=== PATIENT | female | born 1940 | race Two or more races ===

== ENCOUNTER 2022-05-11 07:08 | Inpatient (IN) | payer OTHER ==
[~2022-05-11] VITALS: Ht 170.2 cm; Wt 58.5 kg
[~2022-05-11 07:08] MED LIST: AGG25C PO; ALEN5TAB8 PO; FENO160T4 PO; HYDR25TA4 PO; LISI20TA28 PO; MELA1CAP SL; PEPCID PO; TEMA7.5C PO; [UNRECOGNIZED DRUG - CODE] SC
[2022-05-11 07:50] LABS: Basophils # (auto) 0 10 ^3/uL (0-0.2); Basophils % (auto) 0.3 % (0.0-2.0); Eosinophils # (auto) 0 10 ^3/uL (0-0.8); Hematocrit 50.1 % (36.0-46.0); Hemoglobin 15.6 g/dL (12.2-16.2); Lymphocytes # (auto) 0.6 10 ^3/uL (0.4-5.4); Lymphocytes % (auto) 4.8 % (10.0-50.0); Mean Corpuscular Hemoglobin 28.1 pg (28.0-32.0); Mean Corpuscular Hgb Conc. 31.1 g/dL (32.0-36.0); Mean Corpuscular Volume 90.3 fL (80.0-100.0); Monocytes # (auto) 0.2 10 ^3/uL (0-1.3); Monocytes % (auto) 1.4 % (0.0-12.0); Neutrophils # (auto) 11.6 10 ^3/uL (1.6-8.6); Neutrophils % (auto) 93.5 % (37.0-80.0); Red Blood Cells 5.55 10^6/uL (4.0-5.20); Red Cell Distribution Width 12.9 % (11.8-14.3); White Blood Cell 12.4 10^3/uL (4.4-10.8)
[2022-05-11] MEDS ORDERED: ACETAMINOPHEN 325 MG RECT SUPP PR ONE (07:57)
[2022-05-11] MEDS ORDERED: VANCOMYCIN PER PHARMACY 1,000 MG IV SCH (08:00)
[2022-05-11] MEDS ORDERED: SODIUM CHLORIDE 0.9% 1,650 ML IV ONE ×2 (08:00→08:30)
[2022-05-11] MEDS ORDERED: ACETAMINOPHEN 650 MG RECT SUPP PR ONE (08:00)
[2022-05-11 08:05] LABS: Albumin 3.3 g/dL (3.4-5.0); Anion Gap 14 (5-15); Blood Alcohol < 3.0 mg/dL (0-5); Blood Urea Nitrogen 22 mg/dL (7-18); Calcium 9.4 mg/dL (8.5-10.1); Carbon Dioxide 23 mmol/L (21-32); Chloride 97 mmol/L (98-107); Potassium 4.2 mmol/L (3.5-5.1); Sodium 134 mmol/L (136-145)
[2022-05-11 08:08] LABS: Alanine Aminotransferase 31 U/L (13-56); Aspartate Aminotransferase 21 U/L (15-37); GFR African American 49 mL/min; GFR Non-African American 41 mL/min
[2022-05-11 08:14] LABS: Alkaline Phosphatase 161 U/L (45-117); BUN/Creatinine Ratio 16.5; Bilirubin, Total 1.4 mg/dL (0.2-1.0); Glucose 592 mg/dL (74-106)
[2022-05-11 08:27] LABS: Urine Bacteria NONE SEEN /hpf (None Seen); Urine Blood 1+ /uL (Negative); Urine Specific Gravity 1.019 (1.001-1.035); Urine WBC 4 /hpf (0 - 5)
[2022-05-11] MEDS ORDERED: ASPirin 325 MG TAB PO ONE (08:30)
[2022-05-11] MEDS ORDERED: IOHEXOL 300 MG/ML 100ML BOTTLE IJ ONE (08:30)
[2022-05-11] MEDS ORDERED: VANCOMYCIN 1GM/250ML 250 ML IV ONE ×2 (08:45→11:00)
[2022-05-11] MEDS: PIPERACILLIN-TAZOB 2.25GM 50 ML IV SCH ×2 (09:31→15:27)
[2022-05-11 10:00] LABS: Lactic Acid w/Reflex 3.3 mmol/L (0.4-2.0)
[2022-05-11] MEDS ORDERED: InsuLIN REG 1unit/0.01ml Soln (100units/ml) IV ONE (10:45)
[2022-05-11] MEDS ORDERED: SODIUM CHLORIDE 0.9% 1,000 ML IV ONE (10:45)
[2022-05-11] MEDS ORDERED: ONDANSETRON HCL 4 MG/2 ML VIAL IV ONE (11:30)
[2022-05-11] MEDS ORDERED: NITROGLYCERIN 0.4 MG SL TAB SL PRN (11:45)
[2022-05-11] MEDS ORDERED: MORPHINE SULFATE INJ 2 MG/ml SYRG IV PRN (11:45)
[2022-05-11] MEDS ORDERED: ENOXAPARIN SOD 60 MG/0.6 ML SYRINGE SC ONE (12:15)
[2022-05-11] MEDS ORDERED: NITROGLYCERIN 0.2MG/HR TOPICAL PATCH TD ONE (12:15)
[2022-05-11] MEDS ORDERED: DEXTROSE (50%) 50ML SYRG IV PRN (12:15)
[2022-05-11] MEDS ORDERED: INSULIN LANTUS (GLARGINE) 1 /0.01ml (100units/ml) SC ONE (12:15)
[2022-05-11] MEDS ORDERED: ACETAMINOPHEN 650 MG RECT SUPP PR PRN (13:45)
[2022-05-11 13:48] LABS: Alcohol, Urine < 3.0 mg/dL (0-10); Amphetamine Screen, Urine NEGATIVE (NEGATIVE); Barbiturate Scree,Urine NEGATIVE (NEGATIVE); Benzodiazephine Screen, Urine NEGATIVE (NEGATIVE); Cannabinoid Screen, Urine NEGATIVE (NEGATIVE); Cocaine Screen, Urine NEGATIVE (NEGATIVE); Opiate Scree,Urine NEGATIVE (NEGATIVE); Phencyclidine Screen, Urine NEGATIVE (NEGATIVE)
[2022-05-11] MEDS: SODIUM CHLORIDE 0.9% 1,000 ML IV SCH (13:57)
[2022-05-11 18:33] LABS: Calcium 8.7 mg/dL (8.5-10.1); Potassium 3.9 mmol/L (3.5-5.1)
[2022-05-11] MEDS: InsuLIN REG 1unit/0.01ml Soln (100units/ml) SC SCH (18:33)
[2022-05-11] MEDS: ACCU-CHEK COMFORT CURVE STRIP VI SCH (18:34)
[2022-05-11 18:42] LABS: BUN/Creatinine Ratio 14.7
[2022-05-11] MEDS ORDERED: HALOPERIDOL LACTATE 5 MG/ML INJ VIAL IM PRN (20:45)
[2022-05-11] MEDS ORDERED: LORazepam 2MG/ML-1ML VIAL IV PRN (20:45)
[2022-05-11] MEDS ORDERED: ACETAMINOPHEN 120 MG RECT SUPP PR PRN (21:00)
[2022-05-11 21:30] LABS: Cholesterol 82 mg/dL (< 200)
[2022-05-11 21:32] LABS: HDL Cholesterol 42 mg/dL (40-59); LDL Cholesterol 34 mg/dL (< 100); Triglycerides 97 mg/dL (< 150)
[2022-05-11] MEDS ORDERED: ATORVASTATIN 20 MG TAB PO SCH (22:00)
[2022-05-11] MEDS: INSULIN LANTUS (GLARGINE) 1 /0.01ml (100units/ml) SC SCH (22:40)
[2022-05-12] MEDS: ACCU-CHEK COMFORT CURVE STRIP VI SCH ×5 (00:17→23:41)
[2022-05-12] MEDS: InsuLIN REG 1unit/0.01ml Soln (100units/ml) SC SCH ×5 (00:29→23:40)
[2022-05-12] MEDS: SODIUM CHLORIDE 0.9% 1,000 ML IV SCH ×2 (04:47→21:20)
[2022-05-12 05:35] LABS: Folate (Folic Acid) 6.52 ng/mL (5.38-24)
[2022-05-12 06:32] LABS: Basophils # (auto) 0.1 10 ^3/uL (0-0.2); Basophils % (auto) 0.5 % (0.0-2.0); Eosinophils # (auto) 0 10 ^3/uL (0-0.8); Eosinophils % (auto) 0.1 % (0.0-7.0); Hematocrit 40.4 % (36.0-46.0); Lymphocytes # (auto) 1.6 10 ^3/uL (0.4-5.4); Lymphocytes % (auto) 13.4 % (10.0-50.0); Mean Corpuscular Hemoglobin 28.3 pg (28.0-32.0); Mean Corpuscular Hgb Conc. 32.2 g/dL (32.0-36.0); Mean Corpuscular Volume 87.7 fL (80.0-100.0); Monocytes # (auto) 1.5 10 ^3/uL (0-1.3); Monocytes % (auto) 12.3 % (0.0-12.0); Neutrophils # (auto) 8.7 10 ^3/uL (1.6-8.6); Neutrophils % (auto) 73.7 % (37.0-80.0); Red Blood Cells 4.61 10^6/uL (4.0-5.20); Red Cell Distribution Width 12.4 % (11.8-14.3); White Blood Cell 11.8 10^3/uL (4.4-10.8)
[2022-05-12 06:44] LABS: Albumin 2.3 g/dL (3.4-5.0); Calcium 8.5 mg/dL (8.5-10.1)
[2022-05-12 06:48] LABS: Potassium 2.9 mmol/L (3.5-5.1)
[2022-05-12 06:49] LABS: BUN/Creatinine Ratio 17.9; Bilirubin, Total 1.3 mg/dL (0.2-1.0); Total Protein 6.2 g/dL (6.4-8.2)
[2022-05-12] MEDS: POTASSIUM CHL 20MEQ/100ML 100 ML IV SCH ×3 (09:39→14:50)
[2022-05-12] MEDS: cefTRIAXone 1GM/50ML D5W 50 ML IV SCH (09:46)
[2022-05-12] MEDS ORDERED: ENOXAPARIN SOD 30 MG/0.3 ML SYRINGE SC SCH (10:00)
[2022-05-12] MEDS: ASPirin 81 mg TAB PO SCH (10:00)
[2022-05-12] MEDS ORDERED: AZITHROMYCIN 500MG/ 250ML 250 ML IV SCH (10:00)
[2022-05-12] MEDS ORDERED: VANCOMYCIN 750mg/250ml 250 ML IV ONE (12:00)
[2022-05-12] MEDS: ENOXAPARIN SOD 60 MG/0.6 ML SYRINGE SC SCH (13:19)
[2022-05-12 15:10] LABS: Calcium 8.2 mg/dL (8.5-10.1); Magnesium 1.8 mg/dL (1.6-2.6); Potassium 4.4 mmol/L (3.5-5.1)
[2022-05-12 15:21] LABS: Free T4 (Free Thyroxine) 1.92 ng/dL (0.89-1.76); T3 Total 0.69 ng/mL (0.60-1.81)
[2022-05-12 15:25] LABS: Cholesterol 69 mg/dL (< 200); HDL Cholesterol 33 mg/dL (40-59); LDL Cholesterol 31 mg/dL (< 100); Triglycerides 124 mg/dL (< 150)
[2022-05-12 17:00] VITALS: BP 135/68
[2022-05-12] MEDS ORDERED: LINA5TAB PO (19:55)
[2022-05-12] MEDS ORDERED: METO25TA93 PO (19:55)
[2022-05-12] MEDS ORDERED: OLME1TAB PO (19:55)
[2022-05-12] MEDS ORDERED: ROSU1TAB13 PO (19:55)
[2022-05-12] MEDS ORDERED: LEVO125T PO (19:56)
[2022-05-12 22:00] VITALS: BP 153/64
[2022-05-12] MEDS: ATORVASTATIN 20 MG TAB PO SCH (22:00)
[2022-05-12] MEDS: INSULIN LANTUS (GLARGINE) 1 /0.01ml (100units/ml) SC SCH (23:40)
[2022-05-13 05:00] VITALS: BP 152/51
[2022-05-13 05:26] LABS: Basophils # (auto) 0.1 10 ^3/uL (0-0.2); Basophils % (auto) 0.9 % (0.0-2.0); Eosinophils # (auto) 0.1 10 ^3/uL (0-0.8); Eosinophils % (auto) 0.8 % (0.0-7.0); Hematocrit 38.8 % (36.0-46.0); Hemoglobin 12.7 g/dL (12.2-16.2); Lymphocytes # (auto) 1.7 10 ^3/uL (0.4-5.4); Lymphocytes % (auto) 20.8 % (10.0-50.0); Mean Corpuscular Hemoglobin 29.2 pg (28.0-32.0); Mean Corpuscular Hgb Conc. 32.8 g/dL (32.0-36.0); Mean Corpuscular Volume 89.1 fL (80.0-100.0); Monocytes # (auto) 0.7 10 ^3/uL (0-1.3); Monocytes % (auto) 7.8 % (0.0-12.0); Neutrophils # (auto) 5.9 10 ^3/uL (1.6-8.6); Neutrophils % (auto) 69.7 % (37.0-80.0); Nucleated Red Blood Cells % 0.1 %; Red Blood Cells 4.36 10^6/uL (4.0-5.20); Red Cell Distribution Width 12.9 % (11.8-14.3); White Blood Cell 8.4 10^3/uL (4.4-10.8)
[2022-05-13 05:35] LABS: BUN/Creatinine Ratio 26.3; Calcium 8.4 mg/dL (8.5-10.1); Potassium 3.8 mmol/L (3.5-5.1)
[2022-05-13] MEDS: InsuLIN REG 1unit/0.01ml Soln (100units/ml) SC SCH ×3 (05:45→18:00)
[2022-05-13] MEDS: ACCU-CHEK COMFORT CURVE STRIP VI SCH ×4 (05:46→23:58)
[2022-05-13 09:00] VITALS: BP 153/74
[2022-05-13] MEDS: ASPirin 81 mg TAB PO SCH ×2 (09:07→09:19)
[2022-05-13] MEDS: cefTRIAXone 1GM/50ML D5W 50 ML IV SCH (09:07)
[2022-05-13] MEDS: ENOXAPARIN SOD 60 MG/0.6 ML SYRINGE SC SCH (09:08)
[2022-05-13 13:00] VITALS: BP 163/88
[2022-05-13] MEDS: SODIUM CHLORIDE 0.9% 1,000 ML IV SCH (14:00)
[2022-05-13 17:00] VITALS: BP 187/76
[2022-05-13 22:00] VITALS: BP 164/88
[2022-05-13] MEDS: ATORVASTATIN 20 MG TAB PO SCH (22:10)
[2022-05-13] MEDS: INSULIN LANTUS (GLARGINE) 1 /0.01ml (100units/ml) SC SCH (22:12)
[2022-05-14] MEDS: InsuLIN REG 1unit/0.01ml Soln (100units/ml) SC SCH ×5 (00:03→23:45)
[2022-05-14 01:24] VITALS: BP 155/52
[2022-05-14 05:00] VITALS: BP 156/68
[2022-05-14] MEDS: ACCU-CHEK COMFORT CURVE STRIP VI SCH ×4 (05:43→23:46)
[2022-05-14] MEDS: SODIUM CHLORIDE 0.9% 1,000 ML IV SCH ×2 (06:40→23:20)
[2022-05-14] MEDS: cefTRIAXone 1GM/50ML D5W 50 ML IV SCH (08:44)
[2022-05-14 09:00] VITALS: BP 157/56
[2022-05-14] MEDS: ENOXAPARIN SOD 60 MG/0.6 ML SYRINGE SC SCH (10:49)
[2022-05-14] MEDS: ASPirin 81 mg TAB PO SCH (10:49)
[2022-05-14 13:00] VITALS: BP 177/50
[2022-05-14] MEDS ORDERED: OLME40TA9 PO (16:19)
[2022-05-14] MEDS ORDERED: METOPROLOL SUCCINATE XL 50 MG TAB PO ONE (16:30)
[2022-05-14] MEDS ORDERED: hydrALAZINE HCL 20 MG/ML VL IV ONE (16:30)
[2022-05-14 17:00] VITALS: BP 198/69
[2022-05-14 18:24] LABS: Basophils # (auto) 0 10 ^3/uL (0-0.2); Basophils % (auto) 0.4 % (0.0-2.0); Eosinophils # (auto) 0.1 10 ^3/uL (0-0.8); Eosinophils % (auto) 1.5 % (0.0-7.0); Hematocrit 42.4 % (36.0-46.0); Hemoglobin 13.5 g/dL (12.2-16.2); Lymphocytes # (auto) 1.6 10 ^3/uL (0.4-5.4); Mean Corpuscular Hemoglobin 28.1 pg (28.0-32.0); Mean Corpuscular Hgb Conc. 31.8 g/dL (32.0-36.0); Mean Corpuscular Volume 88.2 fL (80.0-100.0); Monocytes # (auto) 0.6 10 ^3/uL (0-1.3); Monocytes % (auto) 8.9 % (0.0-12.0); Neutrophils # (auto) 4.5 10 ^3/uL (1.6-8.6); Neutrophils % (auto) 66.2 % (37.0-80.0); Nucleated Red Blood Cells % 0.1 %; Red Cell Distribution Width 12.6 % (11.8-14.3); White Blood Cell 6.8 10^3/uL (4.4-10.8)
[2022-05-14 18:34] LABS: Albumin 2.2 g/dL (3.4-5.0); Calcium 8.1 mg/dL (8.5-10.1); Potassium 3.4 mmol/L (3.5-5.1)
[2022-05-14 18:37] LABS: Bilirubin, Total 0.6 mg/dL (0.2-1.0); Total Protein 5.9 g/dL (6.4-8.2)
[2022-05-14 22:00] VITALS: BP 164/62
[2022-05-14] MEDS: ATORVASTATIN 20 MG TAB PO SCH (23:40)
[2022-05-14] MEDS: INSULIN LANTUS (GLARGINE) 1 /0.01ml (100units/ml) SC SCH (23:44)
[2022-05-15 05:00] VITALS: BP 169/61
[2022-05-15] MEDS: InsuLIN REG 1unit/0.01ml Soln (100units/ml) SC SCH ×4 (06:00→23:55)
[2022-05-15 06:54] LABS: Albumin 2.3 g/dL (3.4-5.0); BUN/Creatinine Ratio 18.7; Calcium 8.4 mg/dL (8.5-10.1)
[2022-05-15 06:56] LABS: Phosphorus 3.1 mg/dL (2.5-4.90)
[2022-05-15] MEDS: ACCU-CHEK COMFORT CURVE STRIP VI SCH ×4 (07:06→23:51)
[2022-05-15 07:32] LABS: Potassium 2.8 mmol/L (3.5-5.1)
[2022-05-15] MEDS ORDERED: POTASSIUM CHL 20 Meq TABLET PO ONE ×2 (07:45→15:30)
[2022-05-15] MEDS ORDERED: MAGNESIUM OXIDE 400 MG TAB PO ONE (08:00)
[2022-05-15 08:40] VITALS: BP 183/67
[2022-05-15] MEDS: cefTRIAXone 1GM/50ML D5W 50 ML IV SCH (09:13)
[2022-05-15] MEDS: LOSARTAN POTASSIUM 50 MG TAB PO SCH ×2 (09:14→18:01)
[2022-05-15] MEDS: ENOXAPARIN SOD 60 MG/0.6 ML SYRINGE SC SCH (10:09)
[2022-05-15] MEDS: ASPirin 81 mg TAB PO SCH (10:09)
[2022-05-15 12:15] VITALS: BP 161/64
[2022-05-15 17:00] VITALS: BP 124/77
[2022-05-15] MEDS ORDERED: LOSARTAN POTASSIUM 50 MG TAB PO SCH (17:00)
[2022-05-15 22:00] VITALS: BP 171/62
[2022-05-15] MEDS: methIMAzole 5 MG TAB PO SCH (22:40)
[2022-05-15] MEDS: ATORVASTATIN 20 MG TAB PO SCH (22:40)
[2022-05-15] MEDS: INSULIN LANTUS (GLARGINE) 1 /0.01ml (100units/ml) SC SCH (22:41)
[2022-05-16] MEDS: InsuLIN REG 1unit/0.01ml Soln (100units/ml) SC SCH ×3 (05:16→17:27)
[2022-05-16] MEDS: ACCU-CHEK COMFORT CURVE STRIP VI SCH ×3 (05:16→17:22)
[2022-05-16 05:20] VITALS: BP 187/76
[2022-05-16] MEDS: LOSARTAN POTASSIUM 50 MG TAB PO SCH ×2 (05:57→17:21)
[2022-05-16 06:48] LABS: Calcium 8.7 mg/dL (8.5-10.1); Magnesium 2.3 mg/dL (1.6-2.6); Potassium 4.9 mmol/L (3.5-5.1)
[2022-05-16 08:18] VITALS: BP 152/80
[2022-05-16] MEDS: methIMAzole 5 MG TAB PO SCH ×2 (09:41→22:38)
[2022-05-16] MEDS: cefTRIAXone 1GM/50ML D5W 50 ML IV SCH (09:41)
[2022-05-16] MEDS: ASPirin 81 mg TAB PO SCH (09:41)
[2022-05-16] MEDS: ENOXAPARIN SOD 60 MG/0.6 ML SYRINGE SC SCH (10:00)
[2022-05-16 12:55] VITALS: BP 149/53
[2022-05-16] MEDS ORDERED: CLINDAMYCIN 900MG IV 50 ML IV ONE (16:00)
[2022-05-16 16:40] VITALS: BP 155/56
[2022-05-16] MEDS: ATORVASTATIN 20 MG TAB PO SCH (22:37)
[2022-05-16] MEDS: CLINDAMYCIN 600MG IV 50 ML IV SCH (22:37)
[2022-05-16] MEDS: INSULIN LANTUS (GLARGINE) 1 /0.01ml (100units/ml) SC SCH (22:39)
[2022-05-16] MEDS: ACETAMINOPHEN 325 MG TAB PO PRN (22:40)
[2022-05-16 23:21] VITALS: BP 187/102
[2022-05-17] MEDS: ACCU-CHEK COMFORT CURVE STRIP VI SCH ×5 (00:08→22:58)
[2022-05-17] MEDS: InsuLIN REG 1unit/0.01ml Soln (100units/ml) SC SCH ×5 (00:09→22:59)
[2022-05-17 03:52] VITALS: BP 156/67
[2022-05-17] MEDS: CLINDAMYCIN 600MG IV 50 ML IV SCH ×3 (05:52→22:02)
[2022-05-17 06:38] LABS: BUN/Creatinine Ratio 15.5; Calcium 8.2 mg/dL (8.5-10.1); Potassium 4.7 mmol/L (3.5-5.1)
[2022-05-17] MEDS: LOSARTAN POTASSIUM 50 MG TAB PO SCH (06:52)
[2022-05-17] MEDS: cefTRIAXone 1GM/50ML D5W 50 ML IV SCH (08:35)
[2022-05-17 09:00] VITALS: BP 167/65
[2022-05-17] MEDS ORDERED: hydrALAZINE HCL 25 MG TAB PO PRN (09:15)
[2022-05-17] MEDS: ENOXAPARIN SOD 60 MG/0.6 ML SYRINGE SC SCH (09:24)
[2022-05-17] MEDS: ASPirin 81 mg TAB PO SCH (09:24)
[2022-05-17] MEDS: methIMAzole 5 MG TAB PO SCH ×2 (09:24→21:12)
[2022-05-17] MEDS: ACETAMINOPHEN 325 MG TAB PO PRN ×2 (09:25→21:06)
[2022-05-17] MEDS ORDERED: hydrALAZINE HCL 25 MG TAB PO SCH (12:00)
[2022-05-17 13:00] VITALS: BP 172/85
[2022-05-17] MEDS ORDERED: CLIN-203 PO (13:35)
[2022-05-17] MEDS ORDERED: PROBTAB12 OR (13:35)
[2022-05-17] MEDS ORDERED: LOSARTAN POTASSIUM 50 MG TAB PO ONE (16:15)
[2022-05-17] MEDS ORDERED: LOSARTAN POTASSIUM 50 MG TAB PO SCH (17:00)
[2022-05-17 17:03] VITALS: BP 149/67
[2022-05-17] MEDS: ATORVASTATIN 20 MG TAB PO SCH (21:08)
[2022-05-17] MEDS: INSULIN LANTUS (GLARGINE) 1 /0.01ml (100units/ml) SC SCH (22:58)
[2022-05-18 00:04] VITALS: BP 141/55
[2022-05-18 05:20] VITALS: BP 175/69
[2022-05-18] MEDS: CLINDAMYCIN 600MG IV 50 ML IV SCH (05:47)
[2022-05-18] MEDS: InsuLIN REG 1unit/0.01ml Soln (100units/ml) SC SCH ×2 (05:47→12:26)
[2022-05-18] MEDS: ACCU-CHEK COMFORT CURVE STRIP VI SCH ×2 (05:47→12:06)
[2022-05-18] MEDS ORDERED: LOSARTAN POTASSIUM 50 MG TAB PO SCH (07:00)
[2022-05-18 09:00] VITALS: BP 164/50
[2022-05-18] MEDS: cefTRIAXone 1GM/50ML D5W 50 ML IV SCH (09:44)
[2022-05-18] MEDS: methIMAzole 5 MG TAB PO SCH (09:50)
[2022-05-18] MEDS: ASPirin 81 mg TAB PO SCH (10:26)
[2022-05-18] MEDS: ENOXAPARIN SOD 60 MG/0.6 ML SYRINGE SC SCH (10:26)
[2022-05-18 12:48] VITALS: BP 157/55
== END 2022-05-18 13:50 | disposition home or self-care (01) | DRG 871 ==
LOC: ER 07:08 → EDBD 07:08 → TELE 11:43 → TELE-WESTW 05-12 16:44
PROVIDERS: ADMIT Registered Nurse; ATTEND Internal Medicine
PROC: 05HB33Z Insertion of Infusion Device into Right Basilic Vein, Percutaneous Approach (ICD-10-PCS; principal; 2022-05-11)
PROC: B54MZZA Ultrasonography of Right Upper Extremity Veins, Guidance (ICD-10-PCS; 2022-05-11)
DX: A41.9 Sepsis, unspecified organism (principal); E43 Unspecified severe protein-calorie malnutrition; G93.41 Metabolic encephalopathy; I21.A1 Myocardial infarction type 2; E87.2 Acidosis; Z20.822 Contact with and (suspected) exposure to COVID-19; I12.9 Hypertensive chronic kidney disease with stage 1 through stage 4 chronic kidney disease, or unspecified chronic kidney disease; N18.32 Chronic kidney disease, stage 3b; E11.22 Type 2 diabetes mellitus with diabetic chronic kidney disease; E11.65 Type 2 diabetes mellitus with hyperglycemia; F02.80 Dementia in other diseases classified elsewhere, unspecified severity, without behavioral disturbance, psychotic disturbance, mood disturbance, and anxiety; E03.9 Hypothyroidism, unspecified; F17.200 Nicotine dependence, unspecified, uncomplicated; Z96.649 Presence of unspecified artificial hip joint; G30.9 Alzheimer's disease, unspecified; E05.90 Thyrotoxicosis, unspecified without thyrotoxic crisis or storm; L72.3 Sebaceous cyst; Z88.5 Allergy status to narcotic agent; Z88.8 Allergy status to other drugs, medicaments and biological substances; Z86.73 Personal history of transient ischemic attack (TIA), and cerebral infarction without residual deficits; Z79.899 Other long term (current) drug therapy; Z82.49 Family history of ischemic heart disease and other diseases of the circulatory system; Z83.3 Family history of diabetes mellitus; Z90.710 Acquired absence of both cervix and uterus; Z79.4 Long term (current) use of insulin
CPT/HCPCS: 36415; 70450; 70551; 71045; 74178; 76881; 80048; 80053; 80061; 80069; 80202; 80307; 80320; 81001; 82607; 82746; 82962; 83036; 83605; 83735; 83880; 84439; 84443; 84480; 84484; 85025; 85049; 87040; 87045; 87086; 87088; 87186; 87427; 87493; 92610; 93005; 93306; 93886; 95819; 96361; 96365; 96372; 99291; G0378; J0696; J1815; J2543; J3480; J3490